=== PATIENT | female | born 1990 | race Asian ===

== ENCOUNTER → 2017-10-13 | Outpatient (CLI) | payer OTHER ==
--- NOTE | 2017-10-13 14:45 | MAMMOGRAPHY REPORT ---
ULTRASOUND OF BOTH BREASTS: 10/13/2017 CLINICAL HISTORY: The patient presents for follow-up of bilateral masses seen on a breast ultrasound performed in [place] October 2015. The patient brought the ultrasound report which is in [place], however, the images are not available for review. Based on the patient's translation of the report, a mass w as seen within the right breast at 11:00, 2 cm from the nipple which measured 9 x 5 mm. Another mass was seen in the right 9:00 breast, 2.7 cm from the nipple measuring 1.4 x 0.4 cm. Another mass was seen in the left 5 to 6:00 breast 0.6 cm from the nipple which measured 1.1 x 0.3 cm. Another mass w as seen under the left nipple which measured 1.1 x 0.4 cm. When asked if the patient has any palpabl e lumps, she reports a dense area in the right upper inner quadrant. COMPARISON: No prior exams were available for comparison. TECHNIQUE: Real-time targeted ultrasound of both breasts was performed. FINDINGS: Real-time, high-resolution targeted ultrasound was performed of the areas of the previously seen bila teral breast masses. In the right breast at 11:00, 2 cm from the nipple, there is an oval parallel h ypoechoic mass which measures 7 x 5 x 8 mm. Based on outside measurements of 9 x 5 mm, the mass is l ikely not significantly changed and is therefore probably benign. In the right breast at the 11:00, 3 cm from the nipple, there is an adjacent oval hypoechoic similar-appearing mass which measures 5 x 3 x 5 mm which is also probably benign. In the right breast at 9:00, 4 cm from the nipple, there is an oval parallel hypoechoic circumscribed mass which measures 11 x 4 x 12 mm. based on outside measur ements of 14 x 4 mm, the mass is likely not significantly changed. Ultrasound was also performed of the right upper inner quadrant at approximately 1 to 2:00 at the site of the denser tissue described by the patient; no suspicious sonographic abnormality was seen in this region. In the left 5:00 periareolar breast, there is an oval circumscribed hypoechoic mass which measures 8 x 3 x 5 mm, and is not significantly changed in size compared to prior outside measurements. In the left 6:00 periareolar breast, there is an oval parallel circumscribed hypoechoic mass which measures 7 x 10 x 3 mm, and is likely also unchanged based on prior outside measurements. 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 Given that the prior outside images are not availabl e for review, I would recommend another short interval follow-up targeted ultrasound in 6 months to c onfirm stability. IMPRESSION: ACR-BI-RADS CATEGORY 3: PROBABLY BENIGN - FOLLOW-UP RECOMMENDED Multiple hypoechoic masses in bilateral breasts are likely not significantly changed compared to the prior outside 2016 ultrasound exam, however, only the report is available and the actual images are n ot available for review. 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 Recomme nd follow-up bilateral targeted breast ultrasound in 6 months to confirm stability. The patient was verbally notified of the results. She reports that she will be moving to [place] and w ill have the follow-up ultrasound there. Adry Mariano M.D. ah/:10/13/2017 12:08:35 Regional Account Manager: Tamar LOPEZ(Sherie)(M), [facility] letter sent: Follow Up Recommended 3 BI-RADS Code: ACR-BI-RADS Category 3: Probably Benign
== END | disposition home or self-care (01) ==
LOC: C.MAMM 09:26
PROVIDERS: ATTEND Physician Assistant Medical
DX: N63.10 Unspecified lump in the right breast, unspecified quadrant (principal); N63.20 Unspecified lump in the left breast, unspecified quadrant